=== PATIENT | male | born 1950 | race Caucasian/White ===

== ENCOUNTER 2023-06-10 06:21 | Day surgery (SDC) | payer BC, SELFPAY ==
[2023-05-27 09:04] LABS: Hematocrit 31.3 % (39.0-52.0); Hemoglobin 10.4 g/dL (13.0-18.0); Mean Corp Hgb Conc. 33.2 g/dL (33.0-37.0); Mean Corpuscular Hgb 31.2 pg (27.0-31.0); Mean Platelet Volume 11.5 fL (7.4-10.4); Platelet Count 185 10^3/uL (130-400); Red Blood Cell Count 3.33 10^6/uL (4.70-6.10); Red Cell Dist. Width 12.1 % (11.5-14.5); White Blood Cell Count 4.1 10^3/uL (4.8-10.8)
[2023-05-27 09:27] LABS: INR 1.07; PT 13.7 Sec (11.4-14.6)
[2023-05-27 09:28] LABS: APTT 27.7 Sec (23.4-35.0)
[2023-05-27 09:31] LABS: Blood Urea Nitrogen 43 mg/dl (9-20); Carbon Dioxide 23 mmol/L (22-30); Chloride 104 mmol/L (98-107); Potassium 3.4 mmol/L (3.5-5.1); Sodium 139 mmol/L (135-145); eGFR 42.83
[2023-05-27 09:40] LABS: Calcium 8.8 mg/dl (8.4-10.2); Glucose 76 mg/dl (70-99)
[2023-05-27 14:18] VITALS: BMI 22.9
[2023-06-10] VITALS (11 sets, daily range): BP systolic 123–148; BP diastolic 60–72; BMI 22.9
[2023-06-10 11:46] LABS: Glucose - Point of Care 103 mg/dl (70-99)
[2023-06-10] MEDS: NORMOSOL-R 1000 IV (11:55)
[2023-06-10 14:40] LABS: Glucose - Point of Care 111 mg/dl (70-99)
[2023-06-16 10:49] LABS: Stone Analysis Mass 108 mg
== END 2023-06-10 16:10 | disposition home or self-care (01) ==
LOC: SDS 06:21
PROVIDERS: ATTENDING PHYSICIAN Urology; FAMILY PHYSICIAN Family Medicine; OTHER PHYSICIAN Internal Medicine
DX: N20.1 Calculus of ureter (principal)
CPT/HCPCS: 52356; 36415; 74018; 76000; 80048; 82365; 82962; 85027; 85610; 85730; 93005; A4300; C1758; C1769; C1894; C2617

== ENCOUNTER → 2023-07-29 11:05 | Outpatient (REF) | payer BC, SELFPAY | LOC: HWRAD 11:05 | PROVIDERS: ATTENDING PHYSICIAN Urology; FAMILY PHYSICIAN Family Medicine | DX: N20.0 Calculus of kidney (principal) | CPT/HCPCS: 76775 ==

== ENCOUNTER → 2024-07-02 09:19 | Outpatient (REF) | payer BC, SELFPAY | LOC: HWRAD 09:19 | PROVIDERS: ATTENDING PHYSICIAN Urology; FAMILY PHYSICIAN Family Medicine; REFERRING PHYSICIAN Internal Medicine | DX: N20.0 Calculus of kidney (principal); N13.30 Unspecified hydronephrosis | CPT/HCPCS: 76775 ==

== ENCOUNTER → 2024-11-02 15:46 | Outpatient (REF) | payer BC, SELFPAY | LOC: HWRAD 15:46 | PROVIDERS: ATTENDING PHYSICIAN Nurse Practitioner Family; FAMILY PHYSICIAN Family Medicine | DX: M54.9 Dorsalgia, unspecified (principal) | CPT/HCPCS: 72072; 72110 ==

== ENCOUNTER 2024-11-10 13:40 | Emergency (ER) | payer BC, SELFPAY ==
[2024-11-10 13:42] VITALS: BP 171/84
--- NOTE | 2024-11-10 13:53 | ED.GENMED ---
ED Provider Triage
<Cheryl Contreras PA-C - Last Filed: 11/10/24 13:54>
-
Patient seen by provider in Triage?: Seen in Triage
Attestation: A medical screening examination has been initiated by a qualified medical provider. Based on the assessment performed at this time, it has been determined that an emergent medical condition may exist and the patient has been informed
that further medical evaluation and possible additional diagnostic testing may be needed.
HPI: 74yoM here with R flank/back pain x 2 weeks. Also c/o R arm pain. Seen at urgent care and there was small blood in the urine. Sent to the ED to r/o kidney stone.
GENERAL: Alert , in no apparent distress
EYE: No visual abnormalities.
NECK: Trachea midline
ENT: No visible abnormalities.
LUNGS: No acute respiratory distress
NEUROLOGICAL: Alert and oriented
SKIN: Skin intact. No visible changes.
MUSCULOSKELETAL: Moving extremities normally
PSYCH: Normal and appropriate interaction.
This is a medical evaluation conducted in person to initiate diagnostic evaluation and provide initial therapeutics. Please see further documentation by the treating clinician.
CBC, CMP, UA, and CT abdomen ordered.
History of Present Illness
<Cheryl Contreras PA-C - Last Filed: 11/10/24 13:54>
General
Chief Complaint: Flank Pain
Time Seen by Provider: 11/10/24 17:41
<Musa Crespo PA-C - Last Filed: 11/10/24 22:49>
History of Present Illness
History of Present Illness:
74-year-old male presents the emergency department for evaluation of right mid back and right flank pain that has been ongoing for the past 2 weeks. Pain seems to wax and wane without obvious provoking factors. Denies any associated dysuria, gross
hematuria, fevers, or chills. Saw his primary care physician for this and was given tramadol however this has not provided sustained relief. Went to urgent care today at which time he was noted to have hematuria and thus sent to the ED for further
workup.
Past History
<Cheryl Contreras PA-C - Last Filed: 11/10/24 13:54>
Past History
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
ED Past Surgical History: None
Social History
Tobacco: Non-smoker
Personal:
Living: with family
Employment: Employed
Review of Systems
<Musa Crespo PA-C - Last Filed: 11/10/24 22:49>
Review of Systems
Allergies reviewed?: Yes
All Other Systems: ROS reviewed and negative except as documented in HPI and ROS
Phy Exam
<Musa Crespo PA-C - Last Filed: 11/10/24 22:49>
Physical Exam
Physical Exam:
GEN: Well appearing, NAD, WDWN
HEENT: Oral mucosa moist, no scleral icterus
Cardiac: Regular rate
Lung: No respiratory distress, no tachypnea
Abdomen: Soft, grossly nontender, no rigidity
MSK: No gross deformity or injuries
Skin: Good color, no pallor or jaundice, no rashes
Neuro: AO x3, moves all extremities freely
Psych: Calm, cooperative
Course
<Cheryl Contreras PA-C - Last Filed: 11/10/24 13:54>
Orders/Labs/Results
Orders:
Orders
11/10/24 13:53
Complete Blood Count/With Diff Urgent
Comprehensive Metabolic Panel Urgent
Urinalysis Reflex To Culture Urgent
Date Specimen was Collected: 11/10/24
Time Specimen was Collected: 13:47
Urine Microscopic Reflex Cult Urgent
11/10/24 13:54
CT Abd/pel Without Iv Or Oral Urgent
Comment:
Reason For Exam: R flank pain, hematuria
11/10/24 17:58
Ketorolac [Toradol] 30 mg IM NOW STA
11/10/24 18:40
Magnesium Citrate [Citroma] 300 ml PO ONCE ONE
Abnormal Lab Results
11/10/24
13:53
RBC 3.46 L 10^6/uL
(4.70-6.10)
Hgb 11.1 L g/dL
(13.0-18.0)
Hct 33.4 L %
(39.0-52.0)
MCV 96.5 H fL
(80.0-94.0)
MCH 32.1 H pg
(27.0-31.0)
Absolute Lymphs (auto) 0.7 L 10^3/uL
(1.2-3.4)
Lymphocytes % 13.0 L %
(20.5-51.1)
BUN 33 H mg/dl
(9-20)
Creatinine 1.7 H mg/dL
(0.7-1.3)
Glucose 129 H mg/dl
(70-99)
Ur Occult Blood Reflex 2+ A
(Negative)
Urine RBC 7-10 A /HPF
(0-2)
Urine Bacteria (Reflex) Few A
(Negative)
Urine Albumin (Reflex) 2+ A
(Neg - Trace)
11/10/24 13:53
11/10/24 13:53
Vital Signs
Initial and Last Documented VS:
Initial Vital Signs
Temp Pulse Resp BP Pulse Ox
97.5 F 57 18 171/84 100
11/10/24 13:42 11/10/24 13:42 11/10/24 13:42 11/10/24 13:42 11/10/24 13:42
Last Documented Vital Signs
Temp Pulse Resp BP Pulse Ox
97.5 F 51 16 185/85 98
11/10/24 13:42 11/10/24 18:30 11/10/24 18:30 11/10/24 18:30 11/10/24 18:30
<Musa Crespo PA-C - Last Filed: 11/10/24 22:49>
Orders/Labs/Results
Orders:
Orders
11/10/24 13:53
Complete Blood Count/With Diff Urgent
Comprehensive Metabolic Panel Urgent
Urinalysis Reflex To Culture Urgent
Date Specimen was Collected: 11/10/24
Time Specimen was Collected: 13:47
Urine Microscopic Reflex Cult Urgent
11/10/24 13:54
CT Abd/pel Without Iv Or Oral Urgent
Comment:
Reason For Exam: R flank pain, hematuria
11/10/24 17:58
Ketorolac [Toradol] 30 mg IM NOW STA
11/10/24 18:40
Magnesium Citrate [Citroma] 300 ml PO ONCE ONE
Abnormal Lab Results
11/10/24
13:53
RBC 3.46 L 10^6/uL
(4.70-6.10)
Hgb 11.1 L g/dL
(13.0-18.0)
Hct 33.4 L %
(39.0-52.0)
MCV 96.5 H fL
(80.0-94.0)
MCH 32.1 H pg
(27.0-31.0)
Absolute Lymphs (auto) 0.7 L 10^3/uL
(1.2-3.4)
Lymphocytes % 13.0 L %
(20.5-51.1)
BUN 33 H mg/dl
(9-20)
Creatinine 1.7 H mg/dL
(0.7-1.3)
Glucose 129 H mg/dl
(70-99)
Ur Occult Blood Reflex 2+ A
(Negative)
Urine RBC 7-10 A /HPF
(0-2)
Urine Bacteria (Reflex) Few A
(Negative)
Urine Albumin (Reflex) 2+ A
(Neg - Trace)
11/10/24 13:53
11/10/24 13:53
Vital Signs
Initial and Last Documented VS:
Initial Vital Signs
Temp Pulse Resp BP Pulse Ox
97.5 F 57 18 171/84 100
11/10/24 13:42 11/10/24 13:42 11/10/24 13:42 11/10/24 13:42 11/10/24 13:42
Last Documented Vital Signs
Temp Pulse Resp BP Pulse Ox
97.5 F 51 16 185/85 98
11/10/24 13:42 11/10/24 18:30 11/10/24 18:30 11/10/24 18:30 11/10/24 18:30
<Musa Crespo PA-C - Last Filed: 11/10/24 22:49>
MDM/Problems Addressed
MDM/Problems Addressed:
Imaging does not show clear cause of patient's pain. The noted direct inguinal hernia containing a small portion of the bladder is not palpable on my examination and he has no tenderness that would be worrisome for incarcerated hernia. His flank
pain may be more product of constipation than anything although he does admit to frequent bowel movements. Will recommend he follow-up with general surgery as an outpatient for further evaluation of the hernia however will encourage bowel regimen
to see if this alleviates his pain. Would avoid further opiates
<Cheryl Contreras PA-C - Last Filed: 11/10/24 13:54>
*Pulse Oximetry
SaO2: 100
Oxygen Mode of Delivery: Room air
<Musa Crespo PA-C - Last Filed: 11/10/24 22:49>
*Pulse Oximetry
Patient hypoxic: no
*Critical Care Note
Total Time (30-74mins, 75-104mins- exclusive of procedures): Not Applicable
ED Attending Note
<Cheryl Contreras PA-C - Last Filed: 11/10/24 13:54>
-
Portions of this chart may have been created with voice recognition software.� Occasional wrong word or��sound alike� substitutions may have occurred due to the inherent limitations of voice recognition software.
Discharge Plan
Departure
Patient Disposition: Home (Routine Discharge)
Date of Disposition: 11/10/24
Time of Disposition: 18:39
Patient with high blood pressure during this ER visit?: No
Discharge Problem:
Constipation, Inguinal hernia
Instructions: Constipation in adults - ED discharge instructions
Prescriptions:
New
methocarbamol 750 mg tablet
750 mg PO Q8H PRN (Reason: pain) Qty: 20 0RF
No Action
tamsulosin 0.4 mg Capsule
0.4 mg PO DAILY
levothyroxine 200 mcg Tablet
200 mcg PO DAILY
repaglinide 1 mg Tablet
1 mg PO TID
omega 2-bal-vfe-fish oil [Fish Oil] 1,000 mg (120 mg-180 mg) Capsule
1 cap PO TID
multivitamin Tablet
1 tab PO DAILY
ferrous sulfate [Iron (ferrous sulfate)] 325 mg (65 mg iron) Tablet
325 mg PO DAILY
Probiotic 20 billion cell Capsule
60,000 mmu cells PO DAILY
glucosamine-chondroitin
1,100 mg PO TID
Referrals:
Fer Stokes MD [Family Provider, Family Practice]
Interventions
Interventions:
*Risk Screen - Suicide Last Done: 11/10/24 18:14
*General Assessment Last Done: 11/10/24 18:14
*Neglect/Abuse Screening Last Done: 11/10/24 18:14
*ED- Fall Risk Assessment Last Done: 11/10/24 18:14
*ED COVID-19 Vaccine History Last Done: 11/10/24 18:14
*Nursing Disposition Last Done: 11/10/24 18:50
LK-Xjgyin-Kudrumksby Assessment Last Done: 11/10/24 18:26
ED-Male Genitourinary Assessment Last Done: 11/10/24 18:26
Discharge Date and Time
Discharge Date/Time: 11/10/24 18:50
Print Language: ETHIOPIAN
[2024-11-10 14:08] LABS: Hematocrit 33.4 % (39.0-52.0); Hemoglobin 11.1 g/dL (13.0-18.0); Mean Corp Hgb Conc. 33.2 g/dL (33.0-37.0); Mean Corpuscular Volume 96.5 fL (80.0-94.0); Nucleated Red Blood Cells % 0 % (-); Platelet Count 230 10^3/uL (130-400); Red Cell Dist. Width 12.4 % (11.5-14.5)
[2024-11-10 14:09] LABS: Urine Character Clear (Clear)
[2024-11-10 14:17] LABS: Urine Squamous Cell 0-2 /LPF (Few); Urine White Cell 0-2 /HPF (0-5)
[2024-11-10 14:23] LABS: ALT (SGPT) 20 U/L (0-50); AST (SGOT) 49 U/L (17-59); Albumin 4.6 g/dl (3.5-5.0); Alkaline Phosphatase 102 U/L (38-126); Blood Urea Nitrogen 33 mg/dl (9-20); Calcium 9.0 mg/dl (8.4-10.2); Carbon Dioxide 27 mmol/L (22-30); Chloride 103 mmol/L (98-107); Glucose 129 mg/dl (70-99); Potassium 4.3 mmol/L (3.5-5.1); Sodium 140 mmol/L (135-145); Total Protein 8.1 g/dl (6.3-8.2); eGFR 42.30
--- NOTE | 2024-11-10 17:54 | EDRN ---
Edwin LÓPEZ in room w/pt.
[2024-11-10] MEDS: TORADOL 30 MG IM (18:11)
[2024-11-10 18:13] VITALS: BMI 22.3
[2024-11-10 18:15] VITALS: BP 182/94
--- NOTE | 2024-11-10 18:15 | EDRN ---
Pt states that symptoms started w/ R flank pain on 11/17 and then developed R upper arm pain a week ago. Pt 2 days ago had N/V and a high BS of >200. BS decreased to his normal levels soon thereafter. Pt states he has been unable to sleep due to
pain, has been sleeping in a chair. Since he does not have a chiropractor appt until Tuesday (has been getting some relief w/ chiropractor treatments) and had run out of tramadol that his PCP had ordered for him, he went to be seen at who sent pt
to ER. Pt stated he has been blaming pain on his back needing adjustment.
[2024-11-10 18:20] VITALS: BP 182/94
[2024-11-10 18:30] VITALS: BP 185/85
[2024-11-10] MEDS: CITROMA 300 ML PO (18:48)
== END 2024-11-10 18:50 | disposition home or self-care (01) ==
LOC: EMR 13:40
PROVIDERS: Student in an Organized Health Care Education/Training Program; EMERGENCY PHYSICIAN Emergency Medicine; FAMILY PHYSICIAN Family Medicine
DX: K40.90 Unilateral inguinal hernia, without obstruction or gangrene, not specified as recurrent (principal); K59.00 Constipation, unspecified; R31.9 Hematuria, unspecified; M79.601 Pain in right arm
CPT/HCPCS: 99284; 96372; 74176; 80053; 81003; 81015; 85025

== ENCOUNTER → 2024-11-22 11:45 | Outpatient (REF) | payer BC, SELFPAY | LOC: HWRAD 11:45 | PROVIDERS: ATTENDING PHYSICIAN Family Medicine | DX: M54.2 Cervicalgia (principal); M54.6 Pain in thoracic spine; M25.511 Pain in right shoulder | CPT/HCPCS: 72050; 72072 ==

== ENCOUNTER 2025-02-04 05:46 | Day surgery (SDC) | payer BC, SELFPAY ==
[2025-01-21 14:17] VITALS: BMI 24.3
[2025-02-04] VITALS (10 sets, daily range): BP systolic 116–143; BP diastolic 53–74; BMI 24.3
[2025-02-04] MEDS: HEPARIN 5000 UNITS SC (06:37)
[2025-02-04] MEDS: TYLENOL 1000 MG PO (06:37)
[2025-02-04] MEDS: NORMOSOL-R/PLASMALYTE-A 1000 IV (06:38)
[2025-02-04 06:46] LABS: Glucose - Point of Care 88 mg/dl (70-99)
[2025-02-04 09:54] LABS: Glucose - Point of Care 177 mg/dl (70-99)
--- NOTE | 2025-02-04 09:54 | OR.RPT ---
Operative Report
Operative Report
Primary Surgeon: Andrew
Pre-op Diagnosis: Bilateral inguinal and incarcerated umbilical hernias
Post-op Diagnosis: Same
Procedure Performed: Robot assisted laparoscopic repair of bilateral inguinal and incarcerated umbilical hernias (rTAPP)
Anesthesia Type: GETA
Specimen / Cultures: None
Estimated Blood Loss: 5cc
Complications: None immediate
Operative Findings: Bilateral direct defects, pseudosacs everted, XL MID 3D Max; 1.2cm x 5mm umbilical defect with incarcerated fat; 8cm round bard soft mesh
Date of Surgery: 02/04/25
Indications: This 74M developed a symptomatic right inguinal hernia. On cross sectional imaging a left inguinal and umbilical hernia were identified. He asked that we repair all three hernias today. Robot assisted laparoscopic repair was elected.
Description of procedure:� The patient was taken to the operating room and positioned into supine position. The patient�s abdomen was prepped and draped in standard sterile fashion. A time-out was completed verifying correct patient, procedure,
site, positioning, and implants and special equipment prior to beginning this procedure.
A stab incision was made in the left upper quadrant, a Veress needle was inserted and proper position was confirmed by aspiration and saline drop test. Following this, pneumoperitoneum was created with insufflation of carbon dioxide to 12 mmHg. Then
a 8mm robotic trocar was inserted above and to the left of the umbilicus. A laparoscope was inserted and the area of initial trocar entry and Veress needle placement were both inspected and no injuries were found. Two 8mm trocars were then placed
lateral to the rectus sheath under direct visualization.
Both inguinal regions were inspected and the median umbilical ligament, medial umbilical ligament, and lateral umbilical fold were identified. Attention was turned to the right groin. The peritoneum was incised transversely above the defect and a
flap was developed in the caudad direction. Jeremias�s ligament was identified ultimately dissected to its junction with the iliac vein and the space of Retzius was developed bluntly. The dissection was continued inferiorly to the iliopubic tract,
with care taken to avoid injury to the femoral branch of the genitofemoral nerve and the lateral femoral cutaneous nerve. The cord structures were parietalized.
The direct space was inspected and a hernia defect was identified and reduced by gentle traction. The pseudosac was everted and secured to Jeremias's ligament with 2-0 vicryl suture. The femoral space was inspected and no defect was identified.The
indirect space was inspected and no defect was identified. The canal was inspected and no canal lipoma was identified.
Attention was turned to the left groin and the above process was repeated with similar findings.
Extra large right and left MID 3D max mesh was passed through a trocar. The mesh was placed into the preperitoneal space and moved into position to lay flat and completely cover the direct, indirect, and femoral spaces with overlap at the midline.
The mesh was secured into place using 2-0 vicryl suture to Jeremias�s ligament medially and laterally. Care was taken to avoid the inferolateral triangles containing the iliac vessels and genital nerves. The peritoneal flap was closed over the mesh
and secured with 2-0 monocryl stratafix suture in similar positions of safety. A 14g angiocath was used to decompress the preperitoneal space revealing good seal and all mesh in good position without folding or curling.
Attention was turned to the umbilical defect. An incision was made in the peritoneum several cm superior to the defect and a flap was developed in caudad direction with blunt dissection and cautery. The defect was exposed and incarcerated fatty
contents were reduced. The defect measured as above. It was closed with 0 PDS stratafix suture. bard soft mesh was trimmed to size and passed into the abdomen and centered on the defect and secured to the abdominal wall with 2-0 vicryl suture at
cardinal points and under the defect. The flap was closed over the mesh and secured with 2-0 monocryl stratafix suture.
After ensuring adequate hemostasis, the trocars were removed and the pneumoperitoneum allowed to escape. The trocar incisions were closed at the skin level using 4-0 monocryl and topical skin adhesive. Marcaine 0.5% with epinephrine was infiltrated
into the skin around the port incisions. All counts were correct and the patient tolerated the procedure well and was taken to the postanesthesia care unit in stable condition.
[2025-02-04] MEDS: SUBLIMAZE 25 MCG IV (10:15)
== END 2025-02-04 12:03 | disposition home or self-care (01) ==
LOC: SDS 05:46
PROVIDERS: ATTENDING PHYSICIAN Surgery; FAMILY PHYSICIAN Family Medicine
DX: K40.20 Bilateral inguinal hernia, without obstruction or gangrene, not specified as recurrent (principal)
CPT/HCPCS: 49650; 36415; 82962; 93005; C1781